=== PATIENT | male | born 1990 | race Hispanic/Latino ===

== ENCOUNTER 2018-02-25 18:57 | Emergency (ER) | payer SELFPAY | END 2018-02-25 20:31 | disposition left against medical advice (07) | LOC: ERS 18:57 | DX: Z53.21 Procedure and treatment not carried out due to patient leaving prior to being seen by health care provider (principal) ==

== ENCOUNTER 2019-07-24 09:43 | Emergency (ER) | payer SELFPAY ==
--- NOTE | 2019-07-24 11:48 | CT ---
CT HEAD NONCONTRAST: Date: 07/24/19 INDICATION: Post-traumatic pain, injury. FINDINGS: There is no acute intracranial hemorrhage, mass effect, midline shift, or ventriculomegaly. Incidenta l note of mucosal thickening notably at the left maxillary sinus, partially visualized. IMPRESSION: No acute intracranial hemorrhage or mass effect. POS: [facility]
--- NOTE | 2019-07-24 11:49 | CT ---
CERVICAL SPINE CT NONCONTRAST: Date: 07/24/19 INDICATION: Injury, pain. FINDINGS: There is no compression fracture or subluxation of the cervical spine. Craniocervical junction is int act. Facet joints maintain appropriate alignment. No retropulsion of bone into the vertebral canal. IMPRESSION: No acute osseous abnormality of the cervical spine. POS: [facility]
[2019-07-24] MEDS ORDERED: Ketorolac Tromethamine 30 MG/ML VIAL ONE (12:03)
--- NOTE | 2019-07-24 12:05 | RAD ---
LEFT SHOULDER 3 VIEWS: Date: 07/24/19 INDICATION: Post-traumatic pain. FINDINGS: There is no fracture or dislocation. Osseous structures are intact. IMPRESSION: No acute osseous abnormality of left shoulder. POS: [facility]
== END 2019-07-24 13:08 | disposition home or self-care (01) ==
LOC: ERS 09:43
DX: M62.838 Other muscle spasm (principal); F17.210 Nicotine dependence, cigarettes, uncomplicated; V49.9XXA Car occupant (driver) (passenger) injured in unspecified traffic accident, initial encounter
CPT/HCPCS: 70450; 72125; 96372; J1885

== ENCOUNTER 2019-08-29 14:06 | Emergency (ER) | payer SELFPAY | END 2019-08-29 14:45 | disposition home or self-care (01) | LOC: ERS 14:06 | DX: M79.18 Myalgia, other site (principal); F17.210 Nicotine dependence, cigarettes, uncomplicated | CPT/HCPCS: 99281 ==